=== PATIENT | female | born 1970 | race Caucasian/White ===

== ENCOUNTER 2021-12-30 18:06 | Emergency (ER) | payer MEDICAID ==
[~2021-12-30] VITALS: Ht 157.5 cm; Wt 56.8 kg
[~2021-12-30 18:06] MED LIST: ENAL20TA18 PO; GLIP10TA9 PO
[2021-12-30 19:43] LABS: HEMOGLOBIN 11.4 g/dL (12.0-16.0)
[2021-12-30 19:46] LABS: BASOPHILS % (AUTO) 0.1 % (0.0-2.0); EOSINOPHILS % (AUTO) 0 % (1.0-6.0); HEMATOCRIT 34.1 % (36-46); LYMPHOCYTES # (AUTO) 0.5 K/uL (1.0-4.8); LYMPHOCYTES % (AUTO) 3.9 % (22.0-44.0); MEAN CORPUSCULAR HEMOGLOBIN 26.9 pg (26.0-34.0); MEAN CORPUSCULAR HGB CONC 33.3 G/dL (31.0-37.0); MEAN CORPUSCULAR VOLUME 81 fL (80-100); MONOCYTES # (AUTO) 1.4 K/uL (0.1-1.0); MONOCYTES % (AUTO) 10.1 % (2.0-9.0); NEUTROPHILS # (AUTO) 11.7 K/uL (1.8-7.7); PLATELET COUNT (AUTO) 232 K/uL (150-450); RED BLOOD CELL COUNT(AUTO) 4.22 MIL/uL (4.00-5.20)
[2021-12-30 19:49] LABS: NEUTROPHILS % (AUTO) 85.9 % (40.0-70.0)
[2021-12-30 19:59] LABS: ALBUMIN 2.2 g/dL (3.4-5.0); BILIRUBIN,TOTAL 0.7 mg/dL (0.1-1.0); CALCIUM, TOTAL 8.9 mg/dL (8.8-10.5); CREATININE 1.38 mg/dL (0.60-1.30); POTASSIUM 3.9 mmol/L (3.5-5.1); TOTAL PROTEIN, SERUM 7.2 g/dL (6.4-8.2)
[2021-12-30] MEDS ORDERED: SODIUM CHLORIDE 0.9% 2,000 ML IV ONE (20:15)
[2021-12-30 21:57] VITALS: BP 154/84
[2021-12-30] MEDS ORDERED: ONDA-104 PO (22:15)
== END 2021-12-30 23:15 | disposition home or self-care (01) ==
LOC: EMS 18:08
DX: K52.9 Noninfective gastroenteritis and colitis, unspecified (principal); I10 Essential (primary) hypertension; E11.9 Type 2 diabetes mellitus without complications; Z79.899 Other long term (current) drug therapy
CPT/HCPCS: 80053; 82962; 83690; 85025; 96360; 99283; 36415-L1; 36415-TC

== ENCOUNTER 2022-02-08 18:35 | Emergency (ER) | payer MEDICAID ==
[~2022-02-08] VITALS: Ht 160 cm; Wt 65.5 kg
[~2022-02-08 18:35] MED LIST changes: +ASPI81 PO; +ATOR40TA71 PO; -ENAL20TA18 PO; -GLIP10TA9 PO; +INSLAN SQ; +LEVO750T68 PO; +LOSA25TA2 PO
[2022-02-08] MEDS ORDERED: SODIUM CHLORIDE 0.9% 1,000 ML IV ONE ×2 (18:45→19:30)
[2022-02-08] MEDS ORDERED: CefTRIAXone 1 GM/DEXTROSE 50 ML IV ONE (18:45)
[2022-02-08] MEDS ORDERED: ACETAMINOPHEN 500 MG TABLET PO ONE (19:00)
[2022-02-08 19:01] LABS: BASOPHILS % (AUTO) 0.2 % (0.0-2.0); EOSINOPHILS % (AUTO) 0 % (1.0-6.0); HEMOGLOBIN 10.4 g/dL (12.0-16.0); LYMPHOCYTES # (AUTO) 0.9 K/uL (1.0-4.8); LYMPHOCYTES % (AUTO) 6.9 % (22.0-44.0); MEAN CORPUSCULAR HEMOGLOBIN 26.7 pg (26.0-34.0); MEAN CORPUSCULAR HGB CONC 33.5 G/dL (31.0-37.0); MEAN CORPUSCULAR VOLUME 80 fL (80-100); MONOCYTES % (AUTO) 7.6 % (2.0-9.0); PLATELET COUNT (AUTO) 276 K/uL (150-450); RED BLOOD CELL COUNT(AUTO) 3.88 MIL/uL (4.00-5.20); RED CELL DISTRIBUTION WIDTH 14.6 % (11.5-14.5)
[2022-02-08 19:02] LABS: NEUTROPHILS % (AUTO) 85.3 % (40.0-70.0)
[2022-02-08 19:15] LABS: CALCIUM, TOTAL 9.6 mg/dL (8.8-10.5); CREATININE 1.43 mg/dL (0.60-1.30); POTASSIUM 4.2 mmol/L (3.5-5.1); PROTHROMBIN TIME 10.7 SEC (9.4-11.6)
[2022-02-08 19:21] LABS: ALBUMIN 3.2 g/dL (3.4-5.0); BILIRUBIN,TOTAL 1.1 mg/dL (0.1-1.0)
[2022-02-08 20:39] VITALS: BP 134/80
[2022-02-08 21:02] LABS: COVID AG,FIA SOURCE NASAL SWAB
[2022-02-08 21:04] LABS: APPEARANCE,URINE HAZY (CLEAR); BILIRUBIN,URINE NEGATIVE (NEGATIVE); GLUCOSE, URINE (UA) 300-500 mg/dL (NEGATIVE); KETONES,URINE NEGATIVE (NEGATIVE); LEUKOCYTE ESTERASE ,URINE LARGE (NEGATIVE); NITRATE,URINE POSITIVE (NEGATIVE); OCCULT BLOOD,URINE MODERATE (NEGATIVE); PROTEIN,URINE 30-70 mg/dL (NEGATIVE); SPECIFIC GRAVITIY, URINE 1.008 (1.003-1.030); UROBILINOGEN,URINE <=1.0 mg/dL (<=1.0)
[2022-02-08] MEDS ORDERED: CEFP100T8 PO (21:10)
[2022-02-08] MEDS ORDERED: LOSA25TA2 PO (21:18)
[2022-02-08] MEDS ORDERED: ATOR40TA71 PO (21:18)
[2022-02-08] MEDS ORDERED: ASPI81 PO (21:18)
[2022-02-08 21:21] LABS: INFLUENZA TYPE A NEGATIVE FOR TYPE A (NEGATIVE); INFLUENZA TYPE B NEGATIVE FOR TYPE B (NEGATIVE)
[2022-02-08 21:22] LABS: BACTERIA,URINE Many /HPF (None Seen); SQUAMOUS EPITHELIAL CELL,UR Few /LPF (None Seen); WBC,URINE 51-100 /HPF (0-5)
== END 2022-02-08 21:32 | disposition home or self-care (01) ==
LOC: EMS 18:35
DX: N12 Tubulo-interstitial nephritis, not specified as acute or chronic (principal); I10 Essential (primary) hypertension; E78.00 Pure hypercholesterolemia, unspecified; Z79.899 Other long term (current) drug therapy; Z20.822 Contact with and (suspected) exposure to COVID-19
CPT/HCPCS: 36415; 71045; 80053; 81001; 83605; 84484; 85025; 85610; 85730; 87040; 87077; 87086; 87205; 87426; 87804; 93005; 96361; 96365; 99285; J0696

== ENCOUNTER 2022-02-26 02:43 | Inpatient (IN) | payer MEDICAID ==
[~2022-02-26] VITALS: Ht 165.1 cm; Wt 67.7 kg
[~2022-02-26 02:43] MED LIST changes: +CEFP100T8 PO; -LEVO750T68 PO
[2022-02-26 03:16] LABS: BASOPHILS % (AUTO) 0.2 % (0.0-2.0); EOSINOPHILS % (AUTO) 0.2 % (1.0-6.0); HEMATOCRIT 27.5 % (36-46); HEMOGLOBIN 9.4 g/dL (12.0-16.0); LYMPHOCYTES # (AUTO) 1.3 K/uL (1.0-4.8); LYMPHOCYTES % (AUTO) 11.7 % (22.0-44.0); MEAN CORPUSCULAR HEMOGLOBIN 26.8 pg (26.0-34.0); MEAN CORPUSCULAR HGB CONC 34.2 G/dL (31.0-37.0); MEAN CORPUSCULAR VOLUME 78 fL (80-100); MONOCYTES % (AUTO) 9.2 % (2.0-9.0); NEUTROPHILS # (AUTO) 8.5 K/uL (1.8-7.7); NEUTROPHILS % (AUTO) 78.7 % (40.0-70.0); PLATELET COUNT (AUTO) 367 K/uL (150-450); RED BLOOD CELL COUNT(AUTO) 3.51 MIL/uL (4.00-5.20); RED CELL DISTRIBUTION WIDTH 15.2 % (11.5-14.5)
[2022-02-26 03:25] LABS: APPEARANCE,URINE HAZY (CLEAR); BILIRUBIN,URINE NEGATIVE (NEGATIVE); GLUCOSE, URINE (UA) >=1000 mg/dL (NEGATIVE); KETONES,URINE NEGATIVE (NEGATIVE); LEUKOCYTE ESTERASE ,URINE LARGE (NEGATIVE); NITRATE,URINE NEGATIVE (NEGATIVE); OCCULT BLOOD,URINE SMALL (NEGATIVE); PH,URINE 6.5 (5.0-8.0); PROTEIN,URINE 30-70 mg/dL (NEGATIVE); SPECIFIC GRAVITIY, URINE 1.005 (1.003-1.030); UROBILINOGEN,URINE <=1.0 mg/dL (<=1.0)
[2022-02-26 03:29] LABS: BILIRUBIN,TOTAL 0.8 mg/dL (0.1-1.0); CALCIUM, TOTAL 9.5 mg/dL (8.8-10.5); CREATININE 1.51 mg/dL (0.60-1.30); POTASSIUM 3.9 mmol/L (3.5-5.1); TOTAL PROTEIN, SERUM 8.6 g/dL (6.4-8.2)
[2022-02-26 03:38] LABS: BACTERIA,URINE Few /HPF (None Seen); SQUAMOUS EPITHELIAL CELL,UR Few /LPF (None Seen); WBC,URINE 51-100 /HPF (0-5)
[2022-02-26] MEDS ORDERED: CefTRIAXone SODIUM 500 MG in DEXTROSE 5%-WATER 50 ML IV ONE (03:45)
[2022-02-26] MEDS ORDERED: SODIUM CHLORIDE 0.9% 500 ML IV ONE ×2 (03:45→05:45)
[2022-02-26 05:41] LABS: COVID AG,FIA SOURCE NASOPHARYNGEAL
[2022-02-26 06:11] LABS: INFLUENZA TYPE A NEGATIVE FOR TYPE A (NEGATIVE); INFLUENZA TYPE B NEGATIVE FOR TYPE B (NEGATIVE)
[2022-02-26 06:50] VITALS: BP 125/69
[2022-02-26 08:07] VITALS: BP 131/72
[2022-02-26] MEDS: FAMOTIDINE 20 MG TABLET PO SCH (08:59)
[2022-02-26] MEDS ORDERED: MAGNESIUM HYDROXIDE SUSPENSION 30 ML UDCUP PO PRN (09:00)
[2022-02-26] MEDS ORDERED: DEXTROSE 50%-WATER 25 GM/50 ML SYRINGE IVP PRN (09:00)
[2022-02-26] MEDS ORDERED: ACETAMINOPHEN 325 MG TABLET PO PRN (09:00)
[2022-02-26] MEDS: SODIUM CHLORIDE 0.9% 1,000 ML IV SCH (09:30)
[2022-02-26] MEDS: INSULIN LISPRO 100 UNITS/ML SQ PRN ×3 (11:34→21:03)
[2022-02-26 12:21] LABS: GLUCOMETER DEV NAME(LOC) 6N.2; GLUCOSE,POINT OF CARE 376 MG/DL (70-110)
[2022-02-26 15:36] VITALS: BP 145/76
[2022-02-26] MEDS: HEPARIN SODIUM,PORCINE 5,000 UNITS/ML VIAL SQ SCH ×2 (16:10→23:21)
[2022-02-26 17:46] LABS: GLUCOMETER DEV NAME(LOC) 6N.2; GLUCOSE,POINT OF CARE 241 MG/DL (70-110)
[2022-02-26 19:25] VITALS: BP 146/90
[2022-02-26] MEDS ORDERED: INSULIN GLARGINE,HUM.REC.ANLOG 100 UNITS/ML SQ SCH (21:00)
[2022-02-26 22:31] LABS: GLUCOMETER DEV NAME(LOC) 6N.1; GLUCOSE,POINT OF CARE 243 MG/DL (70-110)
[2022-02-27] MEDS: SODIUM CHLORIDE 0.9% 1,000 ML IV SCH (00:55)
[2022-02-27 04:00] VITALS: BP 136/81
[2022-02-27] MEDS: INSULIN LISPRO 100 UNITS/ML SQ PRN ×4 (06:20→20:19)
[2022-02-27 06:28] LABS: BASOPHILS % (AUTO) 0.4 % (0.0-2.0); EOSINOPHILS % (AUTO) 1.1 % (1.0-6.0); HEMOGLOBIN 8.2 g/dL (12.0-16.0); LYMPHOCYTES # (AUTO) 1.6 K/uL (1.0-4.8); LYMPHOCYTES % (AUTO) 23.4 % (22.0-44.0); MEAN CORPUSCULAR HGB CONC 34.1 G/dL (31.0-37.0); MEAN CORPUSCULAR VOLUME 79 fL (80-100); MONOCYTES # (AUTO) 0.9 K/uL (0.1-1.0); MONOCYTES % (AUTO) 12.9 % (2.0-9.0); NEUTROPHILS # (AUTO) 4.2 K/uL (1.8-7.7); NEUTROPHILS % (AUTO) 62.2 % (40.0-70.0); PLATELET COUNT (AUTO) 352 K/uL (150-450); RED BLOOD CELL COUNT(AUTO) 3.03 MIL/uL (4.00-5.20); RED CELL DISTRIBUTION WIDTH 15.4 % (11.5-14.5)
[2022-02-27 06:32] LABS: CALCIUM, TOTAL 9.2 mg/dL (8.8-10.5); CREATININE 1.39 mg/dL (0.60-1.30); POTASSIUM 4.2 mmol/L (3.5-5.1)
[2022-02-27 08:08] VITALS: BP 111/64
[2022-02-27 08:36] LABS: GLUCOMETER DEV NAME(LOC) 6N.1; GLUCOSE,POINT OF CARE 229 MG/DL (70-110)
[2022-02-27] MEDS: FAMOTIDINE 20 MG TABLET PO SCH (08:41)
[2022-02-27] MEDS: HEPARIN SODIUM,PORCINE 5,000 UNITS/ML VIAL SQ SCH ×3 (08:41→23:05)
[2022-02-27 12:36] LABS: GLUCOMETER DEV NAME(LOC) 6N.2; GLUCOSE,POINT OF CARE 273 MG/DL (70-110)
[2022-02-27 15:48] VITALS: BP 161/91
[2022-02-27 16:08] VITALS: BP 162/93
[2022-02-27] MEDS: AmLODIPine BESYLATE 10 MG TABLET PO SCH (16:27)
[2022-02-27 18:07] LABS: GLUCOMETER DEV NAME(LOC) 6N.1; GLUCOSE,POINT OF CARE 220 MG/DL (70-110)
[2022-02-27 18:44] VITALS: BP 154/90
[2022-02-27 19:25] VITALS: BP 128/75
[2022-02-27 20:37] LABS: GLUCOMETER DEV NAME(LOC) 6N.1; GLUCOSE,POINT OF CARE 258 MG/DL (70-110)
[2022-02-27] MEDS ORDERED: INSULIN GLARGINE,HUM.REC.ANLOG 100 UNITS/ML SQ SCH (21:00)
[2022-02-28 04:46] VITALS: BP 133/80
[2022-02-28] MEDS: INSULIN LISPRO 100 UNITS/ML SQ PRN ×2 (05:43→11:15)
[2022-02-28 06:36] LABS: GLUCOMETER DEV NAME(LOC) 6N.2; GLUCOSE,POINT OF CARE 238 MG/DL (70-110)
[2022-02-28 07:25] VITALS: BP 115/68
[2022-02-28 07:29] LABS: CALCIUM, TOTAL 9.1 mg/dL (8.8-10.5); CREATININE 1.33 mg/dL (0.60-1.30); POTASSIUM 4.1 mmol/L (3.5-5.1)
[2022-02-28 07:33] LABS: HEMOGLOBIN A1C 11.5 % (3.8-5.6)
[2022-02-28] MEDS: FAMOTIDINE 20 MG TABLET PO SCH (08:17)
[2022-02-28] MEDS: AmLODIPine BESYLATE 10 MG TABLET PO SCH (08:17)
[2022-02-28] MEDS: HEPARIN SODIUM,PORCINE 5,000 UNITS/ML VIAL SQ SCH ×2 (08:19→15:54)
[2022-02-28] MEDS ORDERED: INSLAN SQ (10:20)
[2022-02-28] MEDS ORDERED: AMLO-258 PO (10:20)
[2022-02-28] MEDS ORDERED: CEFP100T8 PO (10:20)
[2022-02-28 13:46] LABS: GLUCOMETER DEV NAME(LOC) 6N.1; GLUCOSE,POINT OF CARE 243 MG/DL (70-110)
[2022-02-28 15:55] VITALS: BP 129/73
== END 2022-02-28 16:45 | disposition home or self-care (01) | DRG 469 ==
LOC: EMS 02:45 → 6S 06:40
PROVIDERS: ADMIT Internal Medicine; ATTEND Internal Medicine
DX: N17.9 Acute kidney failure, unspecified (principal); E87.1 Hypo-osmolality and hyponatremia; D50.9 Iron deficiency anemia, unspecified; E11.65 Type 2 diabetes mellitus with hyperglycemia; E86.0 Dehydration; E78.00 Pure hypercholesterolemia, unspecified; Z20.822 Contact with and (suspected) exposure to COVID-19; I10 Essential (primary) hypertension; N39.0 Urinary tract infection, site not specified; Z79.4 Long term (current) use of insulin; Z79.899 Other long term (current) drug therapy; Z82.49 Family history of ischemic heart disease and other diseases of the circulatory system; Z83.3 Family history of diabetes mellitus; Z79.82 Long term (current) use of aspirin
CPT/HCPCS: 80048; 80053; 81001; 82962; 83036; 85025; 87086; 87804; 99285; J0696; J1644; J1815; J7030; J7060

== ENCOUNTER 2023-10-21 12:20 | Inpatient (IN) | payer MEDICAID, OTHER ==
[~2023-10-21] VITALS: Ht 162.6 cm; Wt 74.0 kg
[~2023-10-21 12:20] MED LIST changes: +AMLO-258 PO; -LOSA25TA2 PO
[2023-10-21] MEDS ORDERED: SITA25 PO (12:50)
[2023-10-21] MEDS ORDERED: ATOR20TA65 PO (12:50)
[2023-10-21] MEDS ORDERED: LISI5TAB21 PO (12:50)
[2023-10-21] MEDS ORDERED: INSU100I26 SQ (12:50)
[2023-10-21] MEDS ORDERED: AMLO10TA55 PO (12:50)
[2023-10-21 12:59] LABS: BASOPHILS % (AUTO) 0.3 % (0.0-2.0); EOSINOPHILS % (AUTO) 1.6 % (1.0-6.0); HEMATOCRIT 29.7 % (36-46); HEMOGLOBIN 9.9 g/dL (12.0-16.0); LYMPHOCYTES # (AUTO) 1.7 K/uL (1.0-4.8); LYMPHOCYTES % (AUTO) 25.6 % (22.0-44.0); MEAN CORPUSCULAR HEMOGLOBIN 28.2 pg (26.0-34.0); MEAN CORPUSCULAR HGB CONC 33.2 G/dL (31.0-37.0); MEAN CORPUSCULAR VOLUME 85 fL (80-100); MONOCYTES # (AUTO) 0.6 K/uL (0.1-1.0); MONOCYTES % (AUTO) 8.5 % (2.0-9.0); NEUTROPHILS # (AUTO) 4.3 K/uL (1.8-7.7); PLATELET COUNT (AUTO) 216 K/uL (150-450); RED BLOOD CELL COUNT(AUTO) 3.49 MIL/uL (4.00-5.20); RED CELL DISTRIBUTION WIDTH 13.2 % (11.5-14.5); WHITE BLOOD COUNT (AUTO) 6.7 K/uL (4.5-11.0)
[2023-10-21 13:08] LABS: CALCIUM, TOTAL 8.8 mg/dL (8.8-10.5); CREATININE 2.27 mg/dL (0.60-1.30); POTASSIUM 4.7 mmol/L (3.5-5.1)
[2023-10-21 13:14] LABS: ALBUMIN 3.5 g/dL (3.4-5.0); BILIRUBIN,TOTAL 0.3 mg/dL (0.1-1.0); TOTAL PROTEIN, SERUM 7.3 g/dL (6.4-8.2)
[2023-10-21] MEDS ORDERED: SODIUM CHLORIDE 0.9% 1,000 ML IV ONE (14:30)
[2023-10-21] MEDS ORDERED: HydrALAZINE HCL 20 MG/ML VIAL IVP ONE (14:30)
[2023-10-21 14:56] LABS: APPEARANCE,URINE HAZY (CLEAR); BILIRUBIN,URINE NEGATIVE (NEGATIVE); COLOR,URINE YELLOW (YELLOW); GLUCOSE, URINE (UA) NEGATIVE (NEGATIVE); KETONES,URINE NEGATIVE (NEGATIVE); LEUKOCYTE ESTERASE ,URINE LARGE (NEGATIVE); NITRATE,URINE NEGATIVE (NEGATIVE); OCCULT BLOOD,URINE TRACE (NEGATIVE); PROTEIN,URINE 100-200,SEE CONFIRM mg/dL (NEGATIVE); SPECIFIC GRAVITIY, URINE 1.007 (1.003-1.030); UROBILINOGEN,URINE <=1.0 mg/dL (<=1.0)
[2023-10-21 15:12] LABS: BACTERIA,URINE Many /HPF (None Seen); RBC,URINE 0-2 /HPF (0-2); SQUAMOUS EPITHELIAL CELL,UR Few /LPF (None Seen); SULFOSALICYLIC ACID,URINE 2+ (Negative); WBC,URINE 26-50 /HPF (0-5)
[2023-10-21] MEDS ORDERED: BISACODYL 10 MG RECTAL RECTAL SUPPOSITORY PR PRN (17:00)
[2023-10-21] MEDS ORDERED: HYDROCODONE/ACETAMINOPHEN 5-325 MG TABLET PO PRN (17:00)
[2023-10-21] MEDS ORDERED: MAGNESIUM HYDROXIDE SUSPENSION 30 ML UDCUP PO PRN (17:00)
[2023-10-21] MEDS ORDERED: ONDANSETRON HCL 4 MG/2 ML VIAL IVP PRN (17:00)
[2023-10-21] MEDS ORDERED: CefTRIAXone 1 GM/DEXTROSE 50 ML IV ONE (17:00)
[2023-10-21] MEDS ORDERED: ZOLPIDEM TARTRATE 5 MG TABLET PO PRN (17:00)
[2023-10-21] MEDS ORDERED: MORPHINE SULFATE 2 MG/ML SYRINGE IVP PRN (17:00)
[2023-10-21] MEDS ORDERED: DEXTROSE 50%-WATER 25 GM/50 ML SYRINGE IVP PRN (17:00)
[2023-10-21 17:08] LABS: COVID AG,FIA SOURCE NASAL SWAB
[2023-10-21 17:28] LABS: SARS-COV2 (COVID) ANTIGEN,FIA Negative (Negative)
[2023-10-21 21:17] VITALS: BP 162/83; PULSE 75; RESP 13; TEMP 98.3
[2023-10-21] MEDS: DOCUSATE SODIUM 100 MG CAPSULE PO SCH (21:28)
[2023-10-21] MEDS: HydrALAZINE HCL 25 MG TABLET PO SCH (21:28)
[2023-10-21 23:38] VITALS: BP 170/89; PULSE 75; RESP 16; TEMP 97.9
[2023-10-21] MEDS: ACETAMINOPHEN 325 MG TABLET PO PRN (23:40)
[2023-10-22] MEDS: HydrALAZINE HCL 20 MG/ML VIAL IVP PRN ×2 (00:04→08:08)
[2023-10-22] MEDS: HEPARIN SODIUM,PORCINE 5,000 UNITS/ML VIAL SQ SCH ×4 (00:04→23:22)
[2023-10-22 04:58] VITALS: BP 146/74; PULSE 67; RESP 16; TEMP 97.5
[2023-10-22 06:51] LABS: GLUCOMETER DEV NAME(LOC) 5N.2C; GLUCOSE,POINT OF CARE 140 MG/DL (70-110)
[2023-10-22 07:22] LABS: BASOPHILS % (AUTO) 0.4 % (0.0-2.0); HEMATOCRIT 27.2 % (36-46); HEMOGLOBIN 9.1 g/dL (12.0-16.0); LYMPHOCYTES # (AUTO) 1.6 K/uL (1.0-4.8); LYMPHOCYTES % (AUTO) 24.6 % (22.0-44.0); MEAN CORPUSCULAR HEMOGLOBIN 28.3 pg (26.0-34.0); MEAN CORPUSCULAR HGB CONC 33.3 G/dL (31.0-37.0); MEAN CORPUSCULAR VOLUME 85 fL (80-100); MONOCYTES # (AUTO) 0.6 K/uL (0.1-1.0); MONOCYTES % (AUTO) 9.8 % (2.0-9.0); NEUTROPHILS # (AUTO) 4.1 K/uL (1.8-7.7); NEUTROPHILS % (AUTO) 63.2 % (40.0-70.0); PLATELET COUNT (AUTO) 202 K/uL (150-450); RED CELL DISTRIBUTION WIDTH 13.2 % (11.5-14.5); WHITE BLOOD COUNT (AUTO) 6.5 K/uL (4.5-11.0)
[2023-10-22 08:00] VITALS: BP 164/88; PULSE 78; RESP 18; TEMP 98
[2023-10-22] MEDS: PANTOPRAZOLE SODIUM 40 MG DR TABLET PO SCH (08:08)
[2023-10-22] MEDS: ATORVASTATIN CALCIUM 20 MG TABLET PO SCH (08:08)
[2023-10-22] MEDS: DOCUSATE SODIUM 100 MG CAPSULE PO SCH ×2 (08:08→20:40)
[2023-10-22] MEDS: AmLODIPine BESYLATE 10 MG TABLET PO SCH (08:08)
[2023-10-22 08:17] LABS: CALCIUM, TOTAL 8.8 mg/dL (8.8-10.5); CREATININE 2.18 mg/dL (0.60-1.30); POTASSIUM 4.6 mmol/L (3.5-5.1)
[2023-10-22] MEDS: SitaGLIPtin PHOSPHATE 25 MG TABLET PO SCH (09:04)
[2023-10-22] MEDS: HydrALAZINE HCL 25 MG TABLET PO SCH ×3 (09:04→20:40)
[2023-10-22 11:46] LABS: GLUCOMETER DEV NAME(LOC) 5S.1B; GLUCOSE,POINT OF CARE 143 MG/DL (70-110)
[2023-10-22] MEDS: ACETAMINOPHEN 325 MG TABLET PO PRN (11:47)
[2023-10-22] MEDS: INSULIN LISPRO 100 UNITS/ML SQ PRN ×2 (11:49→20:43)
[2023-10-22 12:00] VITALS: BP 120/71; PULSE 65; RESP 16; TEMP 97.8
[2023-10-22 16:02] VITALS: BP 140/83; PULSE 69; RESP 17; TEMP 97.7
[2023-10-22 17:41] LABS: GLUCOMETER DEV NAME(LOC) 5S.1B; GLUCOSE,POINT OF CARE 185 MG/DL (70-110)
[2023-10-22 18:15] VITALS: BP 137/77; PULSE 75; RESP 16; TEMP 98.1
[2023-10-22 20:46] VITALS: BP 139/63; PULSE 76; RESP 18; TEMP 98.3
[2023-10-23 00:30] VITALS: BP 148/76; PULSE 82; RESP 17; TEMP 98.2
[2023-10-23 05:04] VITALS: BP 128/73; PULSE 71; RESP 17; TEMP 98.3
[2023-10-23] MEDS: INSULIN LISPRO 100 UNITS/ML SQ PRN ×2 (05:52→12:07)
[2023-10-23 07:38] VITALS: BP 128/62; PULSE 73; RESP 18; TEMP 98
[2023-10-23 08:06] LABS: BASOPHILS % (AUTO) 0.4 % (0.0-2.0); HEMATOCRIT 27.3 % (36-46); HEMOGLOBIN 9.1 g/dL (12.0-16.0); LYMPHOCYTES # (AUTO) 1.7 K/uL (1.0-4.8); LYMPHOCYTES % (AUTO) 27.5 % (22.0-44.0); MEAN CORPUSCULAR HEMOGLOBIN 28.3 pg (26.0-34.0); MEAN CORPUSCULAR HGB CONC 33.2 G/dL (31.0-37.0); MEAN CORPUSCULAR VOLUME 85 fL (80-100); MONOCYTES # (AUTO) 0.6 K/uL (0.1-1.0); MONOCYTES % (AUTO) 9.5 % (2.0-9.0); NEUTROPHILS # (AUTO) 3.8 K/uL (1.8-7.7); NEUTROPHILS % (AUTO) 60.6 % (40.0-70.0); PLATELET COUNT (AUTO) 198 K/uL (150-450); RED CELL DISTRIBUTION WIDTH 13.2 % (11.5-14.5); WHITE BLOOD COUNT (AUTO) 6.3 K/uL (4.5-11.0)
[2023-10-23 08:39] LABS: CALCIUM, TOTAL 8.8 mg/dL (8.8-10.5); CREATININE 2.28 mg/dL (0.60-1.30); POTASSIUM 4.7 mmol/L (3.5-5.1)
[2023-10-23] MEDS: SitaGLIPtin PHOSPHATE 25 MG TABLET PO SCH (09:38)
[2023-10-23] MEDS: PANTOPRAZOLE SODIUM 40 MG DR TABLET PO SCH (09:38)
[2023-10-23] MEDS: DOCUSATE SODIUM 100 MG CAPSULE PO SCH (09:38)
[2023-10-23] MEDS: HydrALAZINE HCL 25 MG TABLET PO SCH (09:38)
[2023-10-23] MEDS: HEPARIN SODIUM,PORCINE 5,000 UNITS/ML VIAL SQ SCH (09:38)
[2023-10-23] MEDS: AmLODIPine BESYLATE 10 MG TABLET PO SCH (09:38)
[2023-10-23] MEDS: ATORVASTATIN CALCIUM 20 MG TABLET PO SCH (09:38)
[2023-10-23 11:20] VITALS: BP_SYST 128; BP_SYST 142; BP_DIAS 73; BP_DIAS 77; PULSE 58; RESP 18; TEMP 98.3
[2023-10-23 12:21] LABS: GLUCOMETER DEV NAME(LOC) 5S.2C; GLUCOSE,POINT OF CARE 176 MG/DL (70-110)
[2023-10-23] MEDS ORDERED: AMLO-258 PO (12:30)
[2023-10-23] MEDS ORDERED: HYDR25TA84 PO (12:30)
[2023-10-23] MEDS ORDERED: ATOR20TA65 PO (12:30)
[2023-10-23] MEDS ORDERED: CEPH-558 PO (12:57)
[2023-10-23 17:22] LABS: GLUCOMETER DEV NAME(LOC) 5N.1C; GLUCOSE,POINT OF CARE 143 MG/DL (70-110)
[2023-10-23 17:22] LABS: GLUCOMETER DEV NAME(LOC) 5N.1C; GLUCOSE,POINT OF CARE 202 MG/DL (70-110)
== END 2023-10-23 13:30 | disposition home or self-care (01) | DRG 199 ==
LOC: EMS 12:22 → AHU 15:14 → 5S 17:46
PROVIDERS: ADMIT Internal Medicine; ATTEND Internal Medicine
DX: I16.0 Hypertensive urgency (principal); N17.9 Acute kidney failure, unspecified; D63.8 Anemia in other chronic diseases classified elsewhere; N18.9 Chronic kidney disease, unspecified; E78.00 Pure hypercholesterolemia, unspecified; N39.0 Urinary tract infection, site not specified; I12.9 Hypertensive chronic kidney disease with stage 1 through stage 4 chronic kidney disease, or unspecified chronic kidney disease; E11.65 Type 2 diabetes mellitus with hyperglycemia; Z20.822 Contact with and (suspected) exposure to COVID-19; E11.22 Type 2 diabetes mellitus with diabetic chronic kidney disease; Z79.899 Other long term (current) drug therapy; Z79.4 Long term (current) use of insulin; Z79.84 Long term (current) use of oral hypoglycemic drugs; Z86.73 Personal history of transient ischemic attack (TIA), and cerebral infarction without residual deficits
CPT/HCPCS: 70450; 71045; 76770; 80048; 80053; 81001; 81002; 82962; 85025; 87086; 87186; 93005; 99291; G0378; J0360; J0696; J1644; J7030; 36415-L1; 36415-TC

== ENCOUNTER 2023-10-30 00:18 | Emergency (ER) | payer OTHER ==
[~2023-10-30] VITALS: Ht 154.9 cm; Wt 74.5 kg
[~2023-10-30 00:18] MED LIST changes: -ASPI81 PO; +ATOR20TA65 PO; -ATOR40TA71 PO; -CEFP100T8 PO; +CEPH-558 PO; +HYDR25TA84 PO; -INSLAN SQ; +INSU100I26 SQ; +SITA25 PO
[2023-10-30 00:23] VITALS: BP 151/108; PULSE 101; RESP 18; TEMP 97.8
== END 2023-10-30 00:56 | disposition left against medical advice (07) ==
LOC: EMS 00:19
DX: I10 Essential (primary) hypertension (principal); R53.81 Other malaise; R51.9 Headache, unspecified; Z53.21 Procedure and treatment not carried out due to patient leaving prior to being seen by health care provider
CPT/HCPCS: 99281; Z7502